=== PATIENT | male | born 1955 | race Caucasian/White ===

== ENCOUNTER 2019-02-20 06:08 | Day surgery (SDC) | payer BC, OTHER ==
[~2019-02-20] VITALS: Ht 177.8 cm; Wt 74.8 kg
[~2019-02-20 06:08] MED LIST: ATORVASTATIN CA80 MG PO; CARVEDILOL12.5 MG PO; DILANTIN100 MG PO; MEXILETINE 150150 MG PO; PREDNISONE 20 M20 MG PO; PROAIR HFA8.5 GM INH
[2019-02-20 07:03] VITALS: BP 152/93
[2019-02-20 07:13] LABS: CALCIUM 9.4 mg/dL (8.5-10.1); CREATININE 0.9 mg/dL (0.7-1.3); POTASSIUM 4.1 mmol/L (3.5-5.1)
[2019-02-20] MEDS ORDERED: NORCO 5-325 TA1 EAC1 PO (08:37)
--- NOTE | 2019-02-20 10:58 | O ---
[facility] [place] [address] [place] [address] OPERATIVE REPORT Name: BAYRON DOWNING Room #: 150-2 [facility]..#: [id number] Admission: 02/20/19 Attend Phys: Hugh Sanchez MD Discharge: Date of : 57 Report #: [id number] THIS REPORT FOR: //name// CC: Baldomero Sanchez MD DATE OF SERVICE: 02/20/2019 PATIENT OF: Dr. Hugh Sanchez and Dr. Baldomero Rodriguez. PREOPERATIVE DIAGNOSIS: Left inguinal hernia. POSTOPERATIVE DIAGNOSIS: Left inguinal hernia. PROCEDURE: Left inguinal hernia repair with Prolene hernia system mesh. SURGEON: Hugh Sanchez MD ANESTHESIA: Local IV sedation. DESCRIPTION OF PROCEDURE: The patient was brought to the operating room and placed on operative table in the supine position. Sequential compression devices were in place for DVT prophylaxis. There was no indication for preoperative antibiotics. The patient underwent IV sedation and the left inguinal area was then prepped and draped in a sterile fashion. Skin and subcutaneous tissue were then infiltrated with 0.5% Marcaine and 1% Xylocaine in a 1:1 mixture. Left inguinal skin incision was then performed using a #10 scalpel blade. Hemostasis was obtained using the electrocautery as well as clamps and 2-0 chromic ties. Dissection was carried down through subcutaneous tissue, the external oblique fascia, which was then incised with a knife and opened with the Metzenbaum scissors. The ilioinguinal nerve was identified, dissected free, injected with a local mixture and preserved. The cord was then elevated and held in place with a [place] drain. Cremasteric muscle fibers were then split in the direction of their fibers using clamp and electrocautery. Careful inspection of the cord did not reveal any indirect inguinal hernia sac. The floor was then inspected. There was a small to moderate size direct inguinal hernia defect. The floor was injected with a local mixture and the direct inguinal hernia sac was incised just above the level of floor and reduced back through the floor into the preperitoneal space. The extended Prolene hernia system mesh was then inserted through the floor and the underlay patch was then deployed into the preperitoneal space. The connector was left in the floor and the floor was then tightened around the connector using running 2-0 Prolene two layer [address] [address] OPERATIVE REPORT Name: BAYRON DOWNING Room #: 150-2 [facility].#: [id number] Admission: 02/20/19 Attend Phys: Hugh Sanchez MD Discharge: Date of : 57 Report #: [id number]. The overlay patch was then deployed into the inguinal canal and secured to the pubic tubercle using the same running 2-0 Prolene suture. Mesh was then secured superiorly and at the connector using simple interrupted 2-0 Vicryl sutures. The mesh was then split and wrapped around the cord, secured to the inguinal ligament with simple interrupted 2-0 Vicryl suture. The cord and ilioinguinal nerve were then returned to the canal intact. The external oblique fascia was then closed using running 2-0 Vicryl suture. Pavan's fascia was then reapproximated using 3 simple interrupted 2-0 chromic sutures and the skin then closed with a running 4-0 subcuticular Vicryl stitch. The wound was then dressed with Mastisol, 1/2-inch Steri-Strips cut in half, Telfa, 4 x 4 gauze, sponge and tape. The patient was then taken to the recovery room awake, alert and in good condition. Estimated blood loss was approximately 10 mL and the patient tolerated procedure well. All sponge, lap and instrument counts were correct x 2. <ELECTRONICALLY SIGNED> By: Hugh Sanchez MD 02/20/19 [id number] Hugh Sanchez MD /nt
== END 2019-02-20 10:35 | disposition home or self-care (01) ==
LOC: OR 06:08 → TBA 06:09 → OR 08:00
PROVIDERS: Surgery
DX: K40.90 Unilateral inguinal hernia, without obstruction or gangrene, not specified as recurrent (principal); I10 Essential (primary) hypertension; E78.00 Pure hypercholesterolemia, unspecified; J45.909 Unspecified asthma, uncomplicated; G40.909 Epilepsy, unspecified, not intractable, without status epilepticus; Z98.890 Other specified postprocedural states; Z79.899 Other long term (current) drug therapy; Z87.891 Personal history of nicotine dependence
CPT/HCPCS: 50010; 50101; 50386; 50417; 54111; 56524; 56525; 56526; 62110; 62850; 70005